=== PATIENT | male | born 1980 | race Caucasian/White ===

== ENCOUNTER 2020-07-24 20:51 | Emergency (ER) | payer OTHER ==
[2020-07-24 20:56] VITALS: BP 135/86; PULSE 59; RESP 20; TEMP 97.9
--- NOTE | 2020-07-24 21:49 | ED ---
ENT HPI - General Chief complaint: ENT Stated complaint: nose injury Time Seen by Provider: 07/24/20 21:01 Source: patient, RN notes reviewed Mode of arrival: ambulatory Limitations: no limitations - History of Present Illness Initial comments: Patient is a 40-year-old male that presents to emergency room complaining of nose pain. 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 Patient stated that he does have some mild pain but it is tolerable and does not need any pain medication at this time. She denied any other complaints or issues at this time. He was in no apparent distress or pain while sitting up in bed during the exam interview. He did note that he can breathe out of both nostrils at this time. He denied any chest pain shortness breath headache nausea vomiting diarrhea constipation fever fatigue chills. - Related Data Allergies Allergy/AdvReac Type Severity Reaction Status Date / Time No Known Allergies Allergy Verified 07/24/20 20:56 Review of Systems ROS Statement: Those systems with pertinent positive or pertinent negative responses have been documented in the HPI. ROS Other: All systems not noted in ROS Statement are negative. Past Medical History Past Medical History: No Reported History History of Any Multi-Drug Resistant Organisms: None Reported Past Surgical History: Orthopedic Surgery, Tonsillectomy Past Psychological History: Anxiety, Depression Smoking Status: Former smoker Past Alcohol Use History: Rare Past Drug Use History: None Reported General Exam Limitations: no limitations General appearance: alert, in no apparent distress Head exam: Present: atraumatic, normocephalic, normal inspection Eye exam: Present: normal appearance, PERRL, EOMI. Absent: scleral icterus, conjunctival injection, periorbital swelling ENT exam: Present: normal exam, mucous membranes moist, other (Bridge of nose mildly swollen with a small abrasion to the left side. No septal hematoma.) Neck exam: Present: normal inspection Respiratory exam: Present: normal lung sounds bilaterally. Absent: respiratory distress, wheezes, rales, rhonchi, stridor Cardiovascular Exam: Present: regular rate, normal rhythm, normal heart sounds. Absent: systolic murmur, diastolic murmur, rubs, gallop, clicks Extremities exam: Present: normal inspection, full ROM, normal capillary refill. Absent: tenderness, pedal edema, joint swelling, calf tenderness Neurological exam: Present: alert, oriented X3, CN II-XII intact Psychiatric exam: Present: normal affect, normal mood Skin exam: Present: warm, dry, intact, normal color. Absent: rash Course Vital Signs 07/24/20 20:51 Temperature 97.9 F Pulse Rate 59 L Respiratory 20 Rate Blood Pressure 135/86 O2 Sat by Pulse 100 Oximetry Medical Decision Making - Medical Decision Making 40-year-old male complaining of nose pain after taking any the nose ALLERGY due to spine. CT of the facial bones ordered. Patient declined the need for any pain medication this time. Computed tomography scan negative for any acute process. Case discussed with Dr. Vicente, patient can discharge home with conservative management. - Radiology Data Radiology results: report reviewed, image reviewed CT of the facial bones: Negative computed tomography scan of the facial bones. No fracture seen. Disposition Clinical Impression: Nose abrasion, Epistaxis Disposition: HOME SELF-CARE Condition: Stable Instructions (If sedation given, give patient instructions): Nosebleed (ED) Additional Instructions: Please return to the Emergency Department if symptoms worsen or any other concerns. , Motrin as needed for pain control. Avoid finally blowing the nose. Avoid taking knees to the nose in the future. Follow-up with primary care as needed. Is patient prescribed a controlled substance at d/c from ED?: No Referrals: Marlon Nguyen MD [Primary Care Provider] - 1-2 days Time of Disposition: 22:23
--- NOTE | 2020-07-24 22:14 | CT ---
EXAMINATION TYPE: CT facial bones wo con DATE OF EXAM: 07/24/2020 COMPARISON: None HISTORY: Facial injury today with nose pain. CT DLP: 410.8 mGycm Automated exposure control for dose reduction was used. Images obtained from the bottom of the mandible to the top of the frontal sinuses with no contrast. The mandibular ring appears intact. Temporomandibular joints are intact zygomatic arches appear intac t. Nasal bone appears intact. There is fairly normal aeration of the paranasal sinuses. I see no bony destructive process. There is no evidence of a blowout fracture. There is no retro-orbital mass. Orb ital margins are intact. There is fairly normal aeration of the mastoid sinuses. IMPRESSION: Negative CT scan of the facial bones. No fracture seen.
== END 2020-07-24 22:31 | disposition home or self-care (01) ==
LOC: EC 20:51
DX: S00.31XA Abrasion of nose, initial encounter (principal); R04.0 Epistaxis; F32.9 Major depressive disorder, single episode, unspecified; Z90.09 Acquired absence of other part of head and neck; X58.XXXA Exposure to other specified factors, initial encounter
CPT/HCPCS: 70486; 99283